=== PATIENT | female | born 1990 | race Caucasian/White ===

== ENCOUNTER 2020-11-04 01:12 | Emergency (ER) | payer SELFPAY ==
[~2020-11-04] VITALS: Ht 167.6 cm; Wt 113.4 kg
== END 2020-11-04 04:03 | disposition home or self-care (01) ==
LOC: ER 01:12
DX: R00.2 Palpitations (principal); Z88.0 Allergy status to penicillin; Z88.8 Allergy status to other drugs, medicaments and biological substances; F17.200 Nicotine dependence, unspecified, uncomplicated
CPT/HCPCS: 93005; 93010; 99284-25

== ENCOUNTER 2021-12-21 13:54 | Emergency (ER) | payer OTHER ==
[~2021-12-21] VITALS: Ht 167.6 cm; Wt 113.4 kg
[2021-12-21] MEDS ORDERED: CYCL10 PO ×2 (16:14→16:22)
== END 2021-12-21 16:20 | disposition home or self-care (01) ==
LOC: ER 13:54
DX: S40.012A Contusion of left shoulder, initial encounter (principal); V47.5XXA Car driver injured in collision with fixed or stationary object in traffic accident, initial encounter; F17.200 Nicotine dependence, unspecified, uncomplicated
CPT/HCPCS: 72040; 72100; 73080; 99283-25

== ENCOUNTER → 2025-05-20 | Outpatient (CLI) | payer OTHER ==
[~2025-05-20] MED LIST: CYCL10 PO
== END ==
LOC: LAB SHORT 08:11 → LAB 08:11
DX: L98.9 Disorder of the skin and subcutaneous tissue, unspecified (principal)
CPT/HCPCS: 88305